=== PATIENT | male | born 1975 ===

== ENCOUNTER 2023-03-11 16:04 | Emergency (ER) | payer SELFPAY | END 2023-03-12 02:18 | disposition home or self-care (01) | LOC: DL.ED 16:04 | DX: S83.8X2A Sprain of other specified parts of left knee, initial encounter (principal); I10 Essential (primary) hypertension; W10.9XXA Fall (on) (from) unspecified stairs and steps, initial encounter | CPT/HCPCS: 73564-LT; 99282; 99283 ==